=== PATIENT | male | born 1965 | race Caucasian/White ===

== ENCOUNTER 2020-11-25 10:23 | Inpatient (IN) | payer BC ==
[2020-11-25] MEDS ORDERED: ACETAMINOPHEN TAB 500 MG TAB PO STA (10:46)
--- NOTE | 2020-11-25 10:54 | ED ---
SOB HPI - General Chief Complaint: Shortness of Breath Stated Complaint: COVID +, SOB Time Seen by Provider: 11/25/20 10:32 Source: patient, EMS Mode of arrival: EMS - History of Present Illness Initial Comments: Patient is a 55-year-old male, with history of diabetes, hypertension, presenting to the emergency department via EMS with complaints of difficulty breathing. Patient states he tested positive for Covid on Saturday, 4 days ago. His symptoms started 2 days before that. He is on day 6 of symptoms. He states he's been having cough, weakness, some mild nausea, decreased appetite. He has not been able to eat or drink very much. He denies history of asthma or COPD, he is a nonsmoker. Patient states his shortness of breath has been getting worse over the past 2 days. He has been having intermittent fevers. No Tylenol or Motrin today. He denies any chest pains, no abdominal pains. He has no further complaints at this time. Per EMS, he was satting 86% on room air at home. Upon arrival to our ER, his temperatures 100.5, 94% on 2 L. - Related Data Home Medications Medication Instructions Recorded Confirmed Albuterol Inhaler [Ventolin Hfa 1 puff INHALATION RT-QID PRN 11/25/20 11/25/20 Inhaler] Atorvastatin [Lipitor] 20 mg PO HS 11/25/20 11/25/20 Benzonatate [Tessalon Perles] 100 mg PO TID PRN 11/25/20 11/25/20 HYDROcodone/APAP 7.5-325MG [[place] 1 tab PO Q4H PRN 11/25/20 11/25/20 7.5-325] Nortriptyline [Pamelor] 50 mg PO HS 11/25/20 11/25/20 lisinopriL [Zestril] 20 mg PO DAILY 11/25/20 11/25/20 metFORMIN HCL [Glucophage] 500 mg PO DAILY 11/25/20 11/25/20 Allergies Allergy/AdvReac Type Severity Reaction Status Date / Time No Known Allergies Allergy Verified 11/25/20 12:01 Review of Systems ROS Statement: Those systems with pertinent positive or pertinent negative responses have been documented in the HPI. ROS Other: All systems not noted in ROS Statement are negative. Past Medical History Past Medical History: Diabetes Mellitus, Hypertension History of Any Multi-Drug Resistant Organisms: None Reported Past Surgical History: Back Surgery Past Psychological History: No Psychological Hx Reported Smoking Status: Never smoker Past Alcohol Use History: None Reported Past Drug Use History: None Reported General Exam - General Exam Comments Initial Comments: GENERAL: Patient is well-developed and well-nourished. Patient is nontoxic, however has diaphoretic, appears very fatigued, and in no acute distress. HEAD: Atraumatic, normocephalic. EYES: Pupils equal round and reactive to light, extraocular movements intact, sclera anicteric, conjunctiva are normal. Eyelids were unremarkable. ENT: TMs normal, nares patent, oropharynx clear without exudates. Moist mucous membranes. NECK: Normal range of motion, supple without lymphadenopathy or JVD. LUNGS: Unlabored respirations. Diminished sounds in the lower quintero. No wheezes rales or rhonchi. HEART: Regular rate and rhythm without murmurs, rubs or gallops. ABDOMEN: Soft, nontender, normoactive bowel sounds. No guarding, no rebound. No masses appreciated. : Deferred MUSCULOSKELETAL: Normal extremities with adequate strength and normal range of motion, no pitting or edema. No clubbing or cyanosis. NEUROLOGICAL: Patient is alert and oriented x 3. Motor and sensory are also intact. Cranial nerves II through XII grossly intact. Symmetrical smile. Normal speech, normal gait. PSYCH: Normal mood, normal affect. SKIN: Warm, Dry, normal turgor, no rashes or lesions noted. Course Vital Signs 11/25/20 11/25/20 11/25/20 10:24 11:30 12:30 Temperature 100.5 F H Pulse Rate 98 100 86 Respiratory 18 26 H 22 Rate Blood Pressure 126/75 121/83 121/80 O2 Sat by Pulse 94 L 95 95 Oximetry 11/25/20 11/25/20 11/25/20 13:30 14:30 15:00 Temperature 98.3 F Pulse Rate 80 76 89 Respiratory 24 24 26 H Rate Blood Pressure 120/79 113/73 108/65 O2 Sat by Pulse 95 91 L 88 L Oximetry Medical Decision Making - Medical Decision Making Patient is a 55-year-old male with history of diabetes, hypertension, presenting via EMS for difficulty breathing. Positive Covid test on Saturday, symptoms began 6 days ago. It arrived febrile to 100.5, per EMS he was stating 86% on room air. He is currently on 2 L at 96%. Labs show a normal white count, slight elevation in d-dimer is 0.77, sodium is low at 128, liver enzymes, LDH and CRP are slightly up consistent with Covid. Lactic acid is 1.3. Chest x-ray shows multifocal bilateral patchy Covid pneumonia. He shouldn't has remained stable on 2 L at 95%. We did have a trial of room air, he quickly dropped to 8788%. Patient will remain on 2 L. Patient will be admitted for Covid pneumonia, hypoxia, hyponatremia. Patient accepted by Dr. Smith. Case discussed with Dr. Woodson. - Lab Data Result diagrams: 11/25/20 12:15 11/25/20 12:45 Lab Results 11/25/20 11/25/20 11/25/20 Range/Units 12:15 12:15 12:15 WBC 5.3 (3.8-10.6) k/uL RBC 4.86 (4.30-5.90) m/uL Hgb 15.8 (13.0-17.5) gm/dL Hct 42.8 (39.0-53.0) % MCV 88.0 (80.0-100.0) fL MCH 32.5 (25.0-35.0) pg MCHC 36.9 (31.0-37.0) g/dL RDW 11.2 L (11.5-15.5) % Plt Count 190 (150-450) k/uL MPV 7.0 Neutrophils % 87 % Lymphocytes % 9 % Monocytes % 1 % Eosinophils % 1 % Basophils % 0 % Neutrophils # 4.6 (1.3-7.7) k/uL Lymphocytes # 0.5 L (1.0-4.8) k/uL Monocytes # 0.1 (0-1.0) k/uL Eosinophils # 0.1 (0-0.7) k/uL Basophils # 0.0 (0-0.2) k/uL PT 10.8 (9.0-12.0) sec INR 1.0 (<1.2) APTT 24.0 (22.0-30.0) sec D-Dimer 0.77 H (<0.60) mg/L FEU Sodium (137-145) mmol/L Potassium (3.5-5.1) mmol/L Chloride (98-107) mmol/L Carbon Dioxide (22-30) mmol/L Anion Gap mmol/L BUN (9-20) mg/dL Creatinine (0.66-1.25) mg/dL Est GFR (CKD-EPI)AfAm (>60 ml/min/1.73 sqM) Est GFR (CKD-EPI)NonAf (>60 ml/min/1.73 sqM) Glucose (74-99) mg/dL Plasma Lactic Acid Goran 1.3 (0.7-2.0) mmol/L Calcium (8.4-10.2) mg/dL Magnesium (1.6-2.3) mg/dL Total Bilirubin (0.2-1.3) mg/dL AST (17-59) U/L ALT (4-49) U/L Alkaline Phosphatase (38-126) U/L Lactate Dehydrogenase (313-618) U/L C-Reactive Protein (<1.0) mg/dL Total Protein (6.3-8.2) g/dL Albumin (3.5-5.0) g/dL 11/25/20 Range/Units 12:45 WBC (3.8-10.6) k/uL RBC (4.30-5.90) m/uL Hgb (13.0-17.5) gm/dL Hct (39.0-53.0) % MCV (80.0-100.0) fL MCH (25.0-35.0) pg MCHC (31.0-37.0) g/dL RDW (11.5-15.5) % Plt Count (150-450) k/uL MPV Neutrophils % % Lymphocytes % % Monocytes % % Eosinophils % % Basophils % % Neutrophils # (1.3-7.7) k/uL Lymphocytes # (1.0-4.8) k/uL Monocytes # (0-1.0) k/uL Eosinophils # (0-0.7) k/uL Basophils # (0-0.2) k/uL PT (9.0-12.0) sec INR (<1.2) APTT (22.0-30.0) sec D-Dimer (<0.60) mg/L FEU Sodium 128 L (137-145) mmol/L Potassium 4.0 (3.5-5.1) mmol/L Chloride 95 L (98-107) mmol/L Carbon Dioxide 19 L (22-30) mmol/L Anion Gap 14 mmol/L BUN 17 (9-20) mg/dL Creatinine 0.76 (0.66-1.25) mg/dL Est GFR (CKD-EPI)AfAm >90 (>60 ml/min/1.73 sqM) Est GFR (CKD-EPI)NonAf >90 (>60 ml/min/1.73 sqM) Glucose 116 H (74-99) mg/dL Plasma Lactic Acid Goran (0.7-2.0) mmol/L Calcium 8.3 L (8.4-10.2) mg/dL Magnesium 2.0 (1.6-2.3) mg/dL Total Bilirubin 0.7 (0.2-1.3) mg/dL AST 123 H (17-59) U/L ALT 78 H (4-49) U/L Alkaline Phosphatase 70 (38-126) U/L Lactate Dehydrogenase 1994 H (313-618) U/L C-Reactive Protein 7.7 H (<1.0) mg/dL Total Protein 6.4 (6.3-8.2) g/dL Albumin 3.7 (3.5-5.0) g/dL - EKG Data EKG Comments: Normal sinus rhythm, normal ECG, no signs of acute ischemia. Ventricular rate 98, AR interval 164, QT 348. Disposition Clinical Impression: Pneumonia due to COVID-19 virus, Hypoxia, Hyponatremia Disposition: ADMITTED IP TO THIS HOSP Condition: Stable Referrals: Dominguez Stratton MD [Primary Care Provider] - 1-2 days Decision Date: 11/25/20 Decision Time: 15:46
[2020-11-25] MEDS: DEXAMETHASONE SOD PHOSPHATE 10 MG/ML 1 ML VIAL IV SCH (11:40)
--- NOTE | 2020-11-25 11:57 | XR ---
EXAMINATION TYPE: XR chest 1V portable DATE OF EXAM: 11/25/2020 Comparison: None Clinical History: 55-year-old male shortness of breath, Suspected COVID-19 pneumonia Findings: ACDF hardware. Heart normal size. Aorta and pulmonary vasculature are within normal dates. Patchy mul tifocal airspace opacities. No pleural effusion. Impression: Multifocal bilateral patchy COVID pneumonia.
[2020-11-25] MEDS ORDERED: SODIUM CHLORIDE 0.9% 1,000 ML IV STA (12:07)
[2020-11-25 12:52] LABS: Basophils % (A) 0 %; Eosinophils # (A) 0.1 k/uL (0-0.7); Eosinophils % (A) 1 %; HCT 42.8 % (39.0-53.0); HGB 15.8 gm/dL (13.0-17.5); Lymphocytes # (A) 0.5 k/uL (1.0-4.8); Lymphocytes % (A) 9 %; MCH 32.5 pg (25.0-35.0); MCHC 36.9 g/dL (31.0-37.0); Monocytes # (A) 0.1 k/uL (0-1.0); Monocytes % (A) 1 %; Neutrophils # (A) 4.6 k/uL (1.3-7.7); Neutrophils % (A) 87 %; Platelet Count 190 k/uL (150-450); RBC 4.86 m/uL (4.30-5.90); RDW 11.2 % (11.5-15.5); WBC 5.3 k/uL (3.8-10.6)
[2020-11-25 12:58] LABS: Prothrombin Time 10.8 sec (9.0-12.0)
[2020-11-25 13:21] LABS: D-Dimer 0.77 mg/L FEU (<0.60)
[2020-11-25 14:17] LABS: ALT 78 U/L (4-49); AST 123 U/L (17-59); African American GFR (CKD) >90 (>60 ml/min/1.73 sqM); Albumin 3.7 g/dL (3.5-5.0); Alkaline Phosphatase 70 U/L (38-126); Anion Gap 14 mmol/L; Blood Urea Nitrogen 17 mg/dL (9-20); C Reactive Protein 7.7 mg/dL (<1.0); Calcium 8.3 mg/dL (8.4-10.2); Carbon Dioxide 19 mmol/L (22-30); Chloride 95 mmol/L (98-107); Glucose 116 mg/dL (74-99); Non-African American GFR(CKD) >90 (>60 ml/min/1.73 sqM); Sodium 128 mmol/L (137-145); Total Bilirubin 0.7 mg/dL (0.2-1.3); Total Protein 6.4 g/dL (6.3-8.2)
[2020-11-25 14:25] LABS: LDH 1994 U/L (313-618)
[2020-11-25] MEDS ORDERED: NALOXONE 0.4 MG/ML 1 ML VIAL IV PRN (15:47)
[2020-11-25] MEDS ORDERED: IBUPROFEN 400 MG TAB PO PRN (15:47)
[2020-11-25] MEDS ORDERED: ACETAMINOPHEN TAB 325 MG TAB PO PRN (15:47)
[2020-11-25] MEDS: SODIUM CHLORIDE 0.9% 1,000 ML IV SCH (16:39)
[2020-11-25] MEDS ORDERED: REMDESIVIR 200 MG in SODIUM CHLORIDE 0.9% 250 ML IVPB ONE (17:30)
--- NOTE | 2020-11-25 18:08 | P.CNPUL ---
History of Present Illness Consult date: 11/25/20 Reason for consult: dyspnea, hypoxemia, pneumonia History of present illness: 55-year-old male patient having symptoms of COVID-19 for the past 6 days. He tested positive for days ago on 11/21/2020. His coming into the emergency because of worsening shortness of breath. He is also having cough, weakness, nausea and diminished appetite. He has been eating and drinking much. Comorbid conditions include diabetes mellitus and hypertension. His temperature 90 emergency with 100.5 and he was hemodynamically stable. He was hypoxic and was placed on oxygen 2 L per minute nasal cannula to bring his saturation at 95%. D-dimer was 0.77. His blood work also showed a sodium level of 128, chloride of 95, glucose of 116, lactic acid of 1.3, LFTs are showing mild elevation consistent with transaminitis, LDH was 1994 with CRP was 7.7 and the creatinine is at 0.7 with a BUN of 17. The patient's EKG was showing normal sinus rhythm. The chest x-rays showing bilateral multifocal patchy pulmonary infiltrates/pneumonia. Review of Systems Constitutional: Reports as per HPI, Reports fatigue, Reports fever, Reports poor appetite, Reports weakness Eyes: denies as per HPI, denies blurred vision, denies bulging eye, denies decreased vision, denies diplopia, denies discharge, denies dry eye, denies irritation, denies itching, denies pain, denies photophobia, denies loss of per ipheral vision, denies loss of vision, denies tunnel vision/blind spots Ears: deny: decreased hearing, ear discharge, earache, tinnitus Ears, nose, mouth and throat: Reports as per HPI Breasts: absent: as per HPI, gynecomastia Cardiovascular: Reports decreased exercise tolerance, Reports dyspnea on exertion Respiratory: Reports cough, Reports dyspnea Genitourinary: Reports as per HPI Musculoskeletal: Reports as per HPI, Reports muscle weakness Musculoskeletal: absent: ankle pain, ankle stiffness, ankle swelling, as per HPI, elbow pain, elbow stiffness, elbow swelling, foot pain, foot stiffness, foot swelling, hand pain, hand stiffness, hand swelling, hip pain, hip stiffness, hip swelling, knee pain, knee stiffness, knee swelling, shoulder pain, shoulder stiffness, shoulder swelling, wrist pain, wrist stiffness, wrist swelling Integumentary: Reports as per HPI Neurological: Reports as per HPI, Reports weakness Psychiatric: Reports as per HPI Endocrine: Reports as per HPI Hematologic/Lymphatic: Reports as per HPI Allergic/Immunologic: Reports as per HPI Past Medical History Past Medical History: Diabetes Mellitus, Hypertension History of Any Multi-Drug Resistant Organisms: None Reported Past Surgical History: Back Surgery Additional Past Surgical History / Comment(s): cervical spine surgery-fixation Past Psychological History: No Psychological Hx Reported Smoking Status: Never smoker Past Alcohol Use History: None Reported Past Drug Use History: None Reported Medications and Allergies Home Medications Medication Instructions Recorded Confirmed Type Albuterol Inhaler [Ventolin Hfa 1 puff INHALATION RT-QID PRN 11/25/20 11/25/20 History Inhaler] Atorvastatin [Lipitor] 20 mg PO HS 11/25/20 11/25/20 History Benzonatate [Tessalon Perles] 100 mg PO TID PRN 11/25/20 11/25/20 History HYDROcodone/APAP 7.5-325MG [[place] 1 tab PO Q4H PRN 11/25/20 11/25/20 History 7.5-325] Nortriptyline [Pamelor] 50 mg PO HS 11/25/20 11/25/20 History lisinopriL [Zestril] 20 mg PO DAILY 11/25/20 11/25/20 History metFORMIN HCL [Glucophage] 500 mg PO DAILY 11/25/20 11/25/20 History Allergies Allergy/AdvReac Type Severity Reaction Status Date / Time No Known Allergies Allergy Verified 11/25/20 12:01 Physical Exam Vitals: Vital Signs Temp Pulse Resp BP Pulse Ox 11/25/20 15:30 70 25 H 102/78 94 L 11/25/20 15:00 89 26 H 108/65 88 L 11/25/20 14:30 76 24 113/73 91 L 11/25/20 13:30 98.3 F 80 24 120/79 95 11/25/20 12:30 86 22 121/80 95 11/25/20 11:30 100 26 H 121/83 95 11/25/20 10:24 100.5 F H 98 18 126/75 94 L Intake and Output 11/25/20 11/25/20 11/25/20 06:59 14:59 22:59 Other: Weight 90.718 kg Gen. appearance, comfortable, slightly diaphoretic and looks fatigued. Not in acute breathing distress mild looks to be quite Lethargic and weak currently on 2 L of oxygen by nasal cannula. Head exam was generally normal. There was no scleral icterus or corneal arcus. Mucous membranes were moist. Neck was supple and without jugular venous distension, thyromegaly, or carotid bruits. Carotids were easily palpable bilaterally. There was no adenopathy. Lungs are diminished and the patient has crackles in lung bases. Breathing is unlabored. Cardiac exam revealed the PMI to be normally situated and sized. The rhythm was regular and no extrasystoles were noted during several minutes of auscultation. The first and second heart sounds were normal and physiologic splitting of the second heart sound was noted. There were no murmurs, rubs, clicks, or gallops. Abdominal exam revealed normal bowel sounds. The abdomen was soft, non-tender, and without masses, organomegaly, or appreciable enlargement of the abdominal aorta. Examination of the extremities revealed easily palpable radial, femoral and pedal pulses. There was no cyanosis, clubbing or edema. Examination of the skin revealed no evidence of significant rashes, suspicious appearing nevi or other concerning lesions. Neurologically, the patient is awake and alert and the patient does not have any focal neurological deficit. Cranial nerves are essentially intact.Generalized global motor weakness. Results - Laboratory Findings CBC and BMP: 11/25/20 12:15 11/25/20 12:45 PT/INR, D-dimer PT 10.8 sec (9.0-12.0) 11/25/20 12:15 INR 1.0 (<1.2) 11/25/20 12:15 D-Dimer 0.77 mg/L FEU (<0.60) H 11/25/20 12:15 Abnormal lab findings: Abnormal Labs 11/25/20 11/25/20 11/25/20 12:15 12:15 12:45 RDW 11.2 L Lymphocytes # 0.5 L D-Dimer 0.77 H Sodium 128 L Chloride 95 L Carbon Dioxide 19 L Glucose 116 H Calcium 8.3 L AST 123 H ALT 78 H Lactate Dehydrogenase 1994 H C-Reactive Protein 7.7 H - Diagnostic Findings Chest x-ray: image reviewed Assessment and Plan Plan: 1 acute COVID-19 related pneumonia. Symptoms started approximately 9 days ago. The patient presented with shortness of breath and constitutional symptoms addition to some limited pneumonia and lung bases bilaterally. The patient is not confused however he has significant weakness. Consider the possibility of COVID-19 encephalopathy. 2 acute hypoxic respiratory failure currently on 2 L about 2 by nasal cannula. Chest x-ray was reviewed 3 diabetes mellitus maintained on metformin 4 hypertension 5 Hypochloremic hyponatremia most likely secondary to intravascular volume depletion 6 mild transaminitis secondary to COVID-19 related infection 7 hyperlipidemia 8 lymphopenia secondary to above 9 generalized muscle weakness and overall weakness secondary to COVID-19 related infection. Plan IV fluids with normal saline at the rate of 75 mL an hour Monitor sodium level Oxygen supplementation 2 L and titrate the flow to maintain saturation above 90% Decadron 6 mg IV every 24 hours Lovenox 40 mg subcu every 24 hours Check inflammatory markers including LDH and CRP were elevated. d-dimer is mildly elevated check CPK monitor LFTs Remdesivir and convalescent plasma will be offered to this patient We'll continue to follow. Resume home medications. Monitor oxygenation.
[2020-11-25 18:37] LABS: Glucose,Whole Blood 136 mg/dL (75-99)
[2020-11-25] MEDS: INSULIN ASPART (NovoLOG) 100 UNIT/ML VIAL SQ SCH ×2 (18:38→22:30)
[2020-11-25] MEDS ORDERED: HYDROcodone/APAP 7.5-325MG 1 EACH TAB PO PRN (21:21)
[2020-11-25 22:01] LABS: Glucose,Whole Blood 156 mg/dL (75-99)
[2020-11-25] MEDS: ATORVASTATIN 20 MG TAB PO SCH (22:29)
[2020-11-25] MEDS: NORTRIPTYLINE 25 MG CAP PO SCH (22:29)
[2020-11-25] MEDS: ONDANSETRON 4 MG/2 ML VIAL IVP PRN (22:32)
[2020-11-26 01:04] LABS: Ferritin 2236.4 ng/mL (22.0-322.0)
[2020-11-26] MEDS: SODIUM CHLORIDE 0.9% 1,000 ML IV SCH ×3 (05:46→16:13)
[2020-11-26 07:20] LABS: Glucose,Whole Blood 120 mg/dL (75-99)
--- NOTE | 2020-11-26 07:22 | XR ---
EXAMINATION TYPE: XR chest 1V portable DATE OF EXAM: 11/26/2020 CLINICAL HISTORY: Difficulty breathing and covid progress study. TECHNIQUE: Single AP portable semiupright view of the chest is obtained. COMPARISON: Chest x-ray from one day earlier FINDINGS: Surgical changes cervical spine partially imaged. Cardiac silhouette size stable and withi n normal limits. Persistent low lung volumes with multifocal increased opacities. No pleural effusion or pneumothorax seen bilaterally. IMPRESSION: Low lung volumes and bilateral multifocal opacities consistent with covid-19 infection re demonstrated. No significant change from one day earlier.
[2020-11-26] MEDS: INSULIN ASPART (NovoLOG) 100 UNIT/ML VIAL SQ SCH ×4 (07:57→21:05)
[2020-11-26 08:12] LABS: ALT 68 U/L (4-49); AST 85 U/L (17-59); African American GFR (CKD) >90 (>60 ml/min/1.73 sqM); Albumin 3.1 g/dL (3.5-5.0); Albumin/Globulin Ratio 1.2; Alkaline Phosphatase 60 U/L (38-126); Anion Gap 7 mmol/L; Blood Urea Nitrogen 17 mg/dL (9-20); C Reactive Protein 7.1 mg/dL (<1.0); Carbon Dioxide 25 mmol/L (22-30); Chloride 101 mmol/L (98-107); Globulin 2.5 g/dL; Glucose 127 mg/dL (74-99); LDH 1722 U/L (313-618); Non-African American GFR(CKD) >90 (>60 ml/min/1.73 sqM); Potassium 4.5 mmol/L (3.5-5.1); Sodium 133 mmol/L (137-145); Total Bilirubin 0.6 mg/dL (0.2-1.3); Total Protein 5.6 g/dL (6.3-8.2)
[2020-11-26] MEDS: lisinopriL 20 MG TAB PO SCH (08:14)
[2020-11-26] MEDS: DEXAMETHASONE SOD PHOSPHATE 10 MG/ML 1 ML VIAL IV SCH (08:15)
--- NOTE | 2020-11-26 10:03 | P.PN ---
Subjective Progress Note Date: 11/26/20 55-year-old male patient having symptoms of COVID-19 for the past 6 days. He tested positive for days ago on 11/21/2020. His coming into the emergency because of worsening shortness of breath. He is also having cough, weakness, nausea and diminished appetite. He has been eating and drinking much. Comorbid conditions include diabetes mellitus and hypertension. His temperature 90 emergency with 100.5 and he was hemodynamically stable. He was hypoxic and was placed on oxygen 2 L per minute nasal cannula to bring his saturation at 95%. D-dimer was 0.77. His blood work also showed a sodium level of 128, chloride of 95, glucose of 116, lactic acid of 1.3, LFTs are showing mild elevation consis tent with transaminitis, LDH was 1994 with CRP was 7.7 and the creatinine is at 0.7 with a BUN of 17. The patient's EKG was showing normal sinus rhythm. The chest x-rays showing bilateral multifocal patchy pulmonary infiltrates/pneumonia. 11/26/2020, the patient remains lethargic although somewhat improved compared to yesterday. He remains quite weak. He is on 4 l by nasal cannula the pulse ox of 95%. No worsening in his oxygenation. He is afebrile. He is hemodynamically stable. His IV fluids and the current IV is normal saline at the rate of 75 mL an hour. His sodium level is up to 133 with a chloride level of 11. Renal function stable. The LDH level is down to 1722 and a CRP level is down to 5.6. He is d-dimer today is at 0.7. The patient was given Decadron. The patient was also given Rem and currently is day #2 of treatment. He is awaiting still on his convalescent plasma. Objective - Vital Signs Vital signs: Vital Signs Temp 98.4 F 11/26/20 09:54 Pulse 90 11/26/20 09:54 Resp 20 11/26/20 09:54 BP 109/69 11/26/20 09:54 Pulse Ox 95 11/26/20 09:54 Intake & Output 11/25/20 11/26/20 11/26/20 18:59 06:59 18:59 Weight 90.718 kg - Exam Gen. appearance, comfortable, slightly diaphoretic and looks fatigued. Not in acute breathing distress mild looks to be quite Lethargic and weak currently on 4 L of oxygen by nasal cannula. Head exam was generally normal. There was no scleral icterus or corneal arcus. Mucous membranes were moist. Neck was supple and without jugular venous distension, thyromegaly, or carotid bruits. Carotids were easily palpable bilaterally. There was no adenopathy. Lungs are diminished and the patient has crackles in lung bases. Breathing is unlabored. Cardiac exam revealed the PMI to be normally situated and sized. The rhythm was regular and no extrasystoles were noted during several minutes of auscultation. The first and second heart sounds were normal and physiologic splitting of the second heart sound was noted. There were no murmurs, rubs, clicks, or gallops. Abdominal exam revealed normal bowel sounds. The abdomen was soft, non-tender, and without masses, organomegaly, or appreciable enlargement of the abdominal aorta. Examination of the extremities revealed easily palpable radial, femoral and pedal pulses. There was no cyanosis, clubbing or edema. Examination of the skin revealed no evidence of significant rashes, suspicious appearing nevi or other concerning lesions. Neurologically, the patient is awake and alert and the patient does not have any focal neurological deficit. Cranial nerves are essentially intact.Generalized global motor weakness. - Labs CBC & Chem 7: 11/25/20 12:15 11/26/20 07:07 Labs: Abnormal Lab Results - Last 24 Hours (Table) 11/25/20 11/25/20 11/25/20 Range/Units 12:15 12:15 12:15 RDW 11.2 L (11.5-15.5) % Lymphocytes # 0.5 L (1.0-4.8) k/uL D-Dimer 0.77 H (<0.60) mg/L FEU Sodium (137-145) mmol/L Chloride (98-107) mmol/L Carbon Dioxide (22-30) mmol/L Glucose (74-99) mg/dL POC Glucose (mg/dL) (75-99) mg/dL Calcium (8.4-10.2) mg/dL Ferritin (22.0-322.0) ng/mL AST (17-59) U/L ALT (4-49) U/L Lactate Dehydrogenase (313-618) U/L Creatine Kinase 182 H (55-170) U/L C-Reactive Protein (<1.0) mg/dL Total Protein (6.3-8.2) g/dL Albumin (3.5-5.0) g/dL 11/25/20 11/25/20 11/25/20 Range/Units 12:45 18:35 21:59 RDW (11.5-15.5) % Lymphocytes # (1.0-4.8) k/uL D-Dimer (<0.60) mg/L FEU Sodium 128 L (137-145) mmol/L Chloride 95 L (98-107) mmol/L Carbon Dioxide 19 L (22-30) mmol/L Glucose 116 H (74-99) mg/dL POC Glucose (mg/dL) 136 H 156 H (75-99) mg/dL Calcium 8.3 L (8.4-10.2) mg/dL Ferritin 2236.4 H (22.0-322.0) ng/mL AST 123 H (17-59) U/L ALT 78 H (4-49) U/L Lactate Dehydrogenase 1994 H (313-618) U/L Creatine Kinase (55-170) U/L C-Reactive Protein 7.7 H (<1.0) mg/dL Total Protein (6.3-8.2) g/dL Albumin (3.5-5.0) g/dL 11/26/20 11/26/20 11/26/20 Range/Units 07:07 07:07 07:18 RDW (11.5-15.5) % Lymphocytes # (1.0-4.8) k/uL D-Dimer 0.70 H (<0.60) mg/L FEU Sodium 133 L (137-145) mmol/L Chloride (98-107) mmol/L Carbon Dioxide (22-30) mmol/L Glucose 127 H (74-99) mg/dL POC Glucose (mg/dL) 120 H (75-99) mg/dL Calcium 8.0 L (8.4-10.2) mg/dL Ferritin (22.0-322.0) ng/mL AST 85 H (17-59) U/L ALT 68 H (4-49) U/L Lactate Dehydrogenase 1722 H (313-618) U/L Creatine Kinase (55-170) U/L C-Reactive Protein 7.1 H (<1.0) mg/dL Total Protein 5.6 L (6.3-8.2) g/dL Albumin 3.1 L (3.5-5.0) g/dL Assessment and Plan Plan: 1 acute COVID-19 related pneumonia. Symptoms started approximately 9 days ago. The patient presented with shortness of breath and constitutional symptoms addition to some limited pneumonia and lung bases bilaterally. The patient is not confused however he has significant weakness. Consider the possibility of COVID-19 encephalopathy.. Clinically, he is feeling slightly better. He is currently off to 4 L of oxygen by nasal cannula. Electrolytes are also improving with fluids. She is receiving a combination of Decadron and Remdesivi r 2 acute hypoxic respiratory failure currently on 4 L by nasal cannula. Chest x-ray was reviewed 3 diabetes mellitus maintained on metformin 4 hypertension 5 Hypochloremic hyponatremia most likely secondary to intravascular volume depletion 6 mild transaminitis secondary to COVID-19 related infection 7 hyperlipidemia 8 lymphopenia secondary to above 9 generalized muscle weakness and overall weakness secondary to COVID-19 related infection. Plan IV fluids with normal saline at the rate of 75 mL an hour Monitor sodium level Oxygen supplementation 4 L and titrate the flow to maintain saturation above 90% Decadron 6 mg IV every 24 hours Lovenox 40 mg subcu every 24 hours Check inflammatory markers including LDH and CRP were elevated. d-dimer is mildly elevated check CPK monitor LFTs Remdesivir day #2 Awaiting on convalescent plasma We'll continue to follow. Resume home medications. Monitor oxygenation.
[2020-11-26] MEDS: ALBUTEROL HFA INHALER INHALATION PRN ×2 (11:52→15:40)
[2020-11-26 12:06] LABS: Glucose,Whole Blood 153 mg/dL (75-99)
[2020-11-26] MEDS: ZINC SULFATE 220 MG CAP PO SCH (17:43)
[2020-11-26] MEDS: CHOLECALCIFEROL 25 MCG (1000 IU) TABLET PO SCH (17:43)
[2020-11-26] MEDS: ASCORBIC ACID 500 MG TAB PO SCH (17:43)
[2020-11-26] MEDS: REMDESIVIR 100 MG in SODIUM CHLORIDE 0.9% 250 ML IVPB SCH (19:17)
--- NOTE | 2020-11-26 19:21 | P.HPIM ---
History of Present Illness H&P Date: 11/26/20 Chief Complaint: Short of breath History of presenting complaint: This is a pleasant 55-year-old patient of Dr. Stratton. Chronic stable medical conditions include diabetes, hypertension, chronic insomnia hyperlipidemia. Patient 40s of on Saturday or diagnosed with COVID 19. Symptoms started 2 days prior to that. Short of breath cough fever chills headaches bodyaches some di arrhea. No loss of smell or taste. Patient initial pulse ox on room air was 94% and then a few hours patient did drop down to 88%. Review of systems: GEN.: Fever and chills tired EYES: None HEENT: None NECK: None RESPIRATORY: As above CARDIOVASCULAR: None GASTROINTESTINAL: None GENITOURINARY: None MUSCULOSKELETAL: Bodyaches LYMPHATICS: None HEMATOLOGICAL: None PSYCHIATRY: None NEUROLOGICAL: None Past medical history to include: Diabetes, hypertension, insomnia, hyperlipidemia, back surgery Social history: . Does not smoke or drink alcohol. Employed Physical examination: VITAL SIGNS: 100.5, 98, 18, 09/06/1974, 94% on room air, then 88% on room air GENERAL: BMI 28.7, reclining in bed, short of breath tired. EYES: Pupils equal. Conjunctiva normal. HEENT: External appearance of nose and ears normal, oral cavity grossly normal. NECK: JVD not raised; masses not palpable. HEART: First and second heart sounds are normal; no edema. LUNGS:[ Respiratory rate increased, decreased breath sounds bilateral crackles. ABDOMEN: Soft, nontender, liver spleen not palpable, no masses palpable. PSYCH: Alert and oriented x3; mood and affect slightly anxiousl. NEUROLOGICAL: Cranial nerves grossly intact; no facial asymmetry, power and sensation grossly intact. LYMPHATICS: No lymph nodes palpable in the axilla and neck INVESTIGATIONS, reviewed in the clinical context: November 26: D-dimer 0.7 potassium 4.5 creatinine 0.77 CRP 7.1 LDH 1722 Admission labs: WBC 5.3 hemoglobin 15.8 lymphocytes 0.5 d-dimer 0.77 sodium 128 potassium 4 creatinine 0.76 AST 123 ALT 78 LDH 1993 CRP 7.7 EKG tracing personally reviewed by me-normal sinus rhythm Chest x-ray film personally reviewed by me-bilateral infiltrates Assessment and plan: -Bilateral COVID 19 pneumonia symptoms starting 6 days ago and patient been diagnosed with COVID 4 days ago. Patient is currently receiving vitamin C vitamin D IV Decadron Pepcid subcu Lovenox. Started on IV Remdesivir. Pulmonary consulted -Acute hypoxic respiratory failure from COVID 19 Patient had dropped down to 88% on room air, not requiring 4 L nasal cannula -Diabetes mellitus type 2 Follow Accu-Cheks. Resume Glucophage -Essential hypertension Continue with Zestril -Hyperlipidemia Continue with Lipitor -Chronic insomnia, idiopathic Continue with Pamelor -Hyponatremia likely from decreased solute intake IV fluids Care was discussed with the patient. Questions answered. Encouraged to set up on a chair and use incentive spirometry. Given the complexity and severity of patient's condition expect the patient to be in the hospital at least for 2 overnights Past Medical History Past Medical History: Diabetes Mellitus, Hypertension History of Any Multi-Drug Resistant Organisms: None Reported Past Surgical History: Back Surgery Additional Past Surgical History / Comment(s): cervical spine surgery-fixation Past Psychological History: No Psychological Hx Reported Smoking Status: Never smoker Past Alcohol Use History: None Reported Past Drug Use History: None Reported - Past Family History Father Family Medical History: Dementia Mother Family Medical History: Unable to Obtain Medications and Allergies Home Medications Medication Instructions Recorded Confirmed Type Albuterol Inhaler [Ventolin Hfa 1 puff INHALATION RT-QID PRN 11/25/20 11/25/20 History Inhaler] Atorvastatin [Lipitor] 20 mg PO HS 11/25/20 11/25/20 History Benzonatate [Tessalon Perles] 100 mg PO TID PRN 11/25/20 11/25/20 History HYDROcodone/APAP 7.5-325MG [[place] 1 tab PO Q4H PRN 11/25/20 11/25/20 History 7.5-325] Nortriptyline [Pamelor] 50 mg PO HS 11/25/20 11/25/20 History lisinopriL [Zestril] 20 mg PO DAILY 11/25/20 11/25/20 History metFORMIN HCL [Glucophage] 500 mg PO DAILY 11/25/20 11/25/20 History Allergies Allergy/AdvReac Type Severity Reaction Status Date / Time No Known Allergies Allergy Verified 11/25/20 12:01 Physical Exam Vitals: Vital Signs Temp Pulse Resp BP Pulse Ox 11/26/20 09:54 98.4 F 90 20 109/69 95 04/17/21 08:13 85 18 115/77 94 L 11/26/20 06:50 87 18 115/72 97 11/26/20 03:36 97.9 F 84 18 128/70 92 L 11/26/20 00:05 80 24 111/75 99 11/25/20 22:00 98.1 F 84 24 133/86 97 11/25/20 21:00 99.0 F 98 30 H 122/65 92 L 11/25/20 20:00 81 26 H 131/75 95 11/25/20 19:00 75 26 H 125/91 95 11/25/20 18:00 98.2 F 75 24 121/86 95 11/25/20 17:00 79 18 139/78 94 L 11/25/20 16:38 71 18 115/89 97 11/25/20 15:30 70 25 H 102/78 94 L 11/25/20 15:00 89 26 H 108/65 88 L 11/25/20 14:30 76 24 113/73 91 L 11/25/20 13:30 98.3 F 80 24 120/79 95 11/25/20 12:30 86 22 121/80 95 11/25/20 11:30 100 26 H 121/83 95 11/25/20 10:24 100.5 F H 98 18 126/75 94 L Results CBC & Chem 7: 11/25/20 12:15 11/26/20 07:07 Labs: Abnormal Lab Results - Last 24 Hours (Table) 11/25/20 11/25/20 11/25/20 Range/Units 12:15 12:15 12:15 RDW 11.2 L (11.5-15.5) % Lymphocytes # 0.5 L (1.0-4.8) k/uL D-Dimer 0.77 H (<0.60) mg/L FEU Sodium (137-145) mmol/L Chloride (98-107) mmol/L Carbon Dioxide (22-30) mmol/L Glucose (74-99) mg/dL POC Glucose (mg/dL) (75-99) mg/dL Calcium (8.4-10.2) mg/dL Ferritin (22.0-322.0) ng/mL AST (17-59) U/L ALT (4-49) U/L Lactate Dehydrogenase (313-618) U/L Creatine Kinase 182 H (55-170) U/L C-Reactive Protein (<1.0) mg/dL Total Protein (6.3-8.2) g/dL Albumin (3.5-5.0) g/dL 11/25/20 11/25/20 11/25/20 Range/Units 12:45 18:35 21:59 RDW (11.5-15.5) % Lymphocytes # (1.0-4.8) k/uL D-Dimer (<0.60) mg/L FEU Sodium 128 L (137-145) mmol/L Chloride 95 L (98-107) mmol/L Carbon Dioxide 19 L (22-30) mmol/L Glucose 116 H (74-99) mg/dL POC Glucose (mg/dL) 136 H 156 H (75-99) mg/dL Calcium 8.3 L (8.4-10.2) mg/dL Ferritin 2236.4 H (22.0-322.0) ng/mL AST 123 H (17-59) U/L ALT 78 H (4-49) U/L Lactate Dehydrogenase 1994 H (313-618) U/L Creatine Kinase (55-170) U/L C-Reactive Protein 7.7 H (<1.0) mg/dL Total Protein (6.3-8.2) g/dL Albumin (3.5-5.0) g/dL 11/26/20 11/26/20 11/26/20 Range/Units 07:07 07:07 07:18 RDW (11.5-15.5) % Lymphocytes # (1.0-4.8) k/uL D-Dimer 0.70 H (<0.60) mg/L FEU Sodium 133 L (137-145) mmol/L Chloride (98-107) mmol/L Carbon Dioxide (22-30) mmol/L Glucose 127 H (74-99) mg/dL POC Glucose (mg/dL) 120 H (75-99) mg/dL Calcium 8.0 L (8.4-10.2) mg/dL Ferritin (22.0-322.0) ng/mL AST 85 H (17-59) U/L ALT 68 H (4-49) U/L Lactate Dehydrogenase 1722 H (313-618) U/L Creatine Kinase (55-170) U/L C-Reactive Protein 7.1 H (<1.0) mg/dL Total Protein 5.6 L (6.3-8.2) g/dL Albumin 3.1 L (3.5-5.0) g/dL
[2020-11-26] MEDS: ONDANSETRON 4 MG/2 ML VIAL IVP PRN (19:33)
[2020-11-26] MEDS: ENOXAPARIN 40 MG/0.4 ML SYRINGE SQ SCH (20:54)
[2020-11-26] MEDS: FAMOTIDINE 20 MG TAB PO SCH (20:55)
[2020-11-26] MEDS: NORTRIPTYLINE 25 MG CAP PO SCH (20:55)
[2020-11-26] MEDS: ATORVASTATIN 20 MG TAB PO SCH (20:55)
[2020-11-26 21:07] LABS: Glucose,Whole Blood 199 mg/dL (75-99)
[2020-11-27] MEDS: SODIUM CHLORIDE 0.9% 1,000 ML IV SCH ×4 (00:35→16:41)
[2020-11-27] MEDS: ALBUTEROL HFA INHALER INHALATION PRN ×4 (07:41→19:42)
[2020-11-27 07:57] LABS: Glucose,Whole Blood 140 mg/dL (75-99)
[2020-11-27] MEDS: INSULIN ASPART (NovoLOG) 100 UNIT/ML VIAL SQ SCH ×4 (08:20→21:25)
[2020-11-27] MEDS: lisinopriL 20 MG TAB PO SCH (08:31)
[2020-11-27] MEDS: FAMOTIDINE 20 MG TAB PO SCH ×2 (08:31→21:26)
[2020-11-27] MEDS: ASCORBIC ACID 500 MG TAB PO SCH (08:31)
[2020-11-27] MEDS: CHOLECALCIFEROL 25 MCG (1000 IU) TABLET PO SCH (08:31)
[2020-11-27] MEDS: ZINC SULFATE 220 MG CAP PO SCH (08:31)
[2020-11-27] MEDS: DEXAMETHASONE SOD PHOSPHATE 10 MG/ML 1 ML VIAL IV SCH (08:32)
[2020-11-27] MEDS: ENOXAPARIN 40 MG/0.4 ML SYRINGE SQ SCH (08:32)
[2020-11-27] MEDS ORDERED: metFORMIN 500 MG TAB PO SCH (09:00)
[2020-11-27 09:29] LABS: African American GFR (CKD) >90 (>60 ml/min/1.73 sqM); Anion Gap 7 mmol/L; Blood Urea Nitrogen 19 mg/dL (9-20); C Reactive Protein 4.8 mg/dL (<1.0); Calcium 7.9 mg/dL (8.4-10.2); Carbon Dioxide 25 mmol/L (22-30); Chloride 103 mmol/L (98-107); Glucose 124 mg/dL (74-99); LDH 1867 U/L (313-618); Non-African American GFR(CKD) >90 (>60 ml/min/1.73 sqM); Potassium 3.9 mmol/L (3.5-5.1); Sodium 135 mmol/L (137-145)
--- NOTE | 2020-11-27 09:56 | P.PN ---
Subjective Progress Note Date: 11/27/20 55-year-old male patient having symptoms of COVID-19 for the past 6 days. He tested positive for days ago on 11/21/2020. His coming into the emergency because of worsening shortness of breath. He is also having cough, weakness, nausea and diminished appetite. He has been eating and drinking much. Comorbid conditions include diabetes mellitus and hypertension. His temperature 90 emergency with 100.5 and he was hemodynamically stable. He was hypoxic and was placed on oxygen 2 L per minute nasal cannula to bring his saturation at 95%. D-dimer was 0.77. His blood work also showed a sodium level of 128, chloride of 95, glucose of 116, lactic acid of 1.3, LFTs are showing mild elevation consis tent with transaminitis, LDH was 1994 with CRP was 7.7 and the creatinine is at 0.7 with a BUN of 17. The patient's EKG was showing normal sinus rhythm. The chest x-rays showing bilateral multifocal patchy pulmonary infiltrates/pneumonia. 11/26/2020, the patient remains lethargic although somewhat improved compared to yesterday. He remains quite weak. He is on 4 l by nasal cannula the pulse ox of 95%. No worsening in his oxygenation. He is afebrile. He is hemodynamically stable. His IV fluids and the current IV is normal saline at the rate of 75 mL an hour. His sodium level is up to 133 with a chloride level of 11. Renal function stable. The LDH level is down to 1722 and a CRP level is down to 5.6. He is d-dimer today is at 0.7. The patient was given Decadron. The patient was also given Rem and currently is day #2 of treatment. He is awaiting still on his convalescent plasma. Or 2020 the patient is being seen for a follow-up. He remains on oxygen at 5 L with a pulse of 91%. He is afebrile. He is on IV fluids and his electrolytes have been stable and his sodium level is up to 135 and his underlying hyponatremia has been corrected. He was, inflammatory markers regarding COVID- 19 related pneumonia has been elevated and the patient has an LDH of 1868 with a CRP of 4.8. D-dimer is at 1.0. He remains on Decadron. He is on day #3 of breath treatment. He also received a unit of convalescent plasma which she got yesterday. Still sleepy, lethargic, feels weak and his energy level remains quite low. He has a dry cough. Not using his IS aggressively. He did not have his entire meal and his oral intake still remains low. No nausea. No vomiting. He is still having diarrhea and chills. He remains on IV fluids with normal saline at the rate of 75 mL an hour. Objective - Vital Signs Vital signs: Vital Signs Temp 97.7 F 11/27/20 08:00 Pulse 76 11/27/20 08:00 Resp 18 11/27/20 08:00 BP 108/69 11/27/20 08:00 Pulse Ox 91 L 11/27/20 08:00 Intake & Output 11/26/20 11/27/20 11/27/20 18:59 06:59 18:59 Intake Total 240 1437 Balance 240 1437 Intake: Intake, IV Titration 775 Amount Remdesivir 100 mg In 100 Sodium Chloride 0.9% 250 ml @ 250 mls/hr IVPB DAILY@1700 [facility] Rx#: [id number] Sodium Chloride 0.9% 1, 675 000 ml @ 75 mls/hr IV . [id number] [facility] Rx#:[id number] Oral 240 360 Blood Product 302 Ffp Convalescent Plasma 302 Cpd Unit [id number] Other: # Voids 2 3 # Bowel Movements 2 - Exam Gen. appearance, comfortable, slightly diaphoretic and looks fatigued. Not in acute breathing distress mild looks to be quite Lethargic and weak currently on 5 L of oxygen by nasal cannula. Head exam was generally normal. There was no scleral icterus or corneal arcus. Mucous membranes were moist. Neck was supple and without jugular venous distension, thyromegaly, or carotid bruits. Carotids were easily palpable bilaterally. There was no adenopathy. Lungs are diminished and the patient has crackles in lung bases. Breathing is unlabored. Cardiac exam revealed the PMI to be normally situated and sized. The rhythm was regular and no extrasystoles were noted during several minutes of auscultation. The first and second heart sounds were normal and physiologic splitting of the second heart sound was noted. There were no murmurs, rubs, clicks, or gallops. Abdominal exam revealed normal bowel sounds. The abdomen was soft, non-tender, and without masses, organomegaly, or appreciable enlargement of the abdominal aorta. Examination of the extremities revealed easily palpable radial, femoral and pedal pulses. There was no cyanosis, clubbing or edema. Examination of the skin revealed no evidence of significant rashes, suspicious appearing nevi or other concerning lesions. Neurologically, the patient is awake and alert and the patient does not have any focal neurological deficit. Cranial nerves are essentially intact.Generalized global motor weakness. - Labs CBC & Chem 7: 11/25/20 12:15 11/27/20 08:24 Labs: Abnormal Lab Results - Last 24 Hours (Table) 11/26/20 11/26/20 11/27/20 Range/Units 12:04 21:03 07:40 D-Dimer (<0.60) mg/L FEU Sodium (137-145) mmol/L Glucose (74-99) mg/dL POC Glucose (mg/dL) 153 H 199 H 140 H (75-99) mg/dL Calcium (8.4-10.2) mg/dL Lactate Dehydrogenase (313-618) U/L C-Reactive Protein (<1.0) mg/dL 11/27/20 11/27/20 Range/Units 08:24 08:24 D-Dimer 1.00 H (<0.60) mg/L FEU Sodium 135 L (137-145) mmol/L Glucose 124 H (74-99) mg/dL POC Glucose (mg/dL) (75-99) mg/dL Calcium 7.9 L (8.4-10.2) mg/dL Lactate Dehydrogenase 1867 H (313-618) U/L C-Reactive Protein 4.8 H (<1.0) mg/dL Microbiology - Last 24 Hours (Table) 11/25/20 12:15 Blood Culture - Preliminary Blood No Growth after 24 hours 11/25/20 12:15 Blood Culture - Preliminary Blood No Growth after 24 hours Assessment and Plan Plan: 1 acute COVID-19 related pneumonia. Symptoms started approximately 9 days ago. The patient presented with shortness of breath and constitutional symptoms addition to some limited pneumonia and lung bases bilaterally. The patient is not confused however he has significant weakness. Consider the possibility of COVID-19 encephalopathy.. Clinically, he is feeling slightly better. He is currently on 5 L of oxygen by nasal cannula. Electrolytes are also improving with fluids. She is receiving a combination of Decadron and Remdesivir a #3 and he received also units of convalescent plasma. He is still having diarrhea which I attribute to COVID-19 infection. 2 acute hypoxic respiratory failure currently on 5 L by nasal cannula. Chest x-ray was reviewed 3 diabetes mellitus maintained on metformin 4 hypertension 5 Hypochloremic hyponatremia most likely secondary to intravascular volume depletion 6 mild transaminitis secondary to COVID-19 related infection 7 hyperlipidemia 8 lymphopenia secondary to above 9 generalized muscle weakness and overall weakness secondary to COVID-19 related infection. Plan IV fluids with normal saline at the rate of 75 mL an hour Monitor sodium level Oxygen supplementation 5 L and titrate the flow to maintain saturation above 90% Decadron 6 mg IV every 24 hours Lovenox 40 mg subcu every 24 hours Check inflammatory markers including LDH and CRP were elevated. d-dimer is mildly elevated and LDH continues to be quite elevated. check CPK was normal monitor LFTs were mildly elevated and the patient has some mild transaminitis Remdesivir day #3 Received a unit of convalescent plasma We'll continue to follow. Resume home medications. Monitor oxygenation.
[2020-11-27 11:59] LABS: Glucose,Whole Blood 158 mg/dL (75-99)
[2020-11-27] MEDS: REMDESIVIR 100 MG in SODIUM CHLORIDE 0.9% 250 ML IVPB SCH (16:41)
[2020-11-27 16:54] LABS: Glucose,Whole Blood 136 mg/dL (75-99)
--- NOTE | 2020-11-27 20:34 | P.PN ---
Progress Note - Text Progress Note Date: 11/27/20 Chief Complaint: Short of breath History of presenting complaint: This is a pleasant 55-year-old patient of Dr. Stratton. Chronic stable medical conditions include diabetes, hypertension, chronic insomnia hyperlipidemia. Patient 40s of on Saturday or diagnosed with COVID 19. Symptoms started 2 days prior to that. Short of breath cough fever chills headaches bodyaches some diarrhea. No loss of smell or taste. Patient initial pulse ox on room air was 94% and then a few hours patient did drop down to 88%. Admitted with COVID 19 pneumonia, acute hypoxic respiratory failure. Started IV dexamethasone, Lovenox, IV Remdesivir. Initially started on 4 L of nasal cannula. Today: On 5 L nasal cannula. Short of breath. A slight cough. Tired. Decreased appetite. Review of systems: Was done for constitutional, cardiovascular, GI, pulmonary. relevant finding as above Active Medications Acetaminophen (Acetaminophen Tab 325 Mg Tab) 650 mg PO Q6HR PRN PRN Reason: Mild Pain or Fever > 100.5 Last Admin: 11/27/20 01:10 Dose: 650 mg Documented by: Hydrocodone Bitart/Acetaminophen (Hydrocodone/Apap 7.5-325mg 1 Each Tab) 1 each PO Q4H PRN PRN Reason: Pain Albuterol Sulfate (Albuterol Hfa Inhaler) 1 puff INHALATION RT-QID PRN PRN Reason: Shortness Of Breath Last Admin: 11/27/20 19:42 Dose: 1 puff Documented by: Ascorbic Acid (Ascorbic Acid 500 Mg Tab) 1,000 mg PO DAILY [facility] Last Admin: 11/27/20 08:31 Dose: 1,000 mg Documented by: Atorvastatin Calcium (Atorvastatin 20 Mg Tab) 20 mg PO HS [facility] Last Admin: 11/26/20 20:55 Dose: 20 mg Documented by: Cholecalciferol (Cholecalciferol 25 Mcg (1000 Iu) Tablet) 100 mcg PO DAILY [facility] Last Admin: 11/27/20 08:31 Dose: 100 mcg Documented by: Dexamethasone Sodium Phosphate (Dexamethasone Sod Phosphate 10 Mg/Ml 1 Ml Vial) 6 mg IV DAILY [facility] Last Admin: 11/27/20 08:32 Dose: 6 mg Documented by: Enoxaparin Sodium (Enoxaparin 40 Mg/0.4 Ml Syringe) 40 mg SQ DAILY [facility] Last Admin: 11/27/20 08:32 Dose: 40 mg Documented by: Famotidine (Famotidine 20 Mg Tab) 20 mg PO BID [facility] Last Admin: 11/27/20 08:31 Dose: 20 mg Documented by: Sodium Chloride (Saline 0.9%) 1,000 mls @ 75 mls/hr IV .[id number] [facility] Last Admin: 11/27/20 16:40 Dose: 75 mls/hr Documented by: Remdesivir 100 mg/ Sodium (Chloride) 250 mls @ 250 mls/hr IVPB DAILY@1700 [facility] Stop: 11/29/20 17:59 Last Admin: 11/27/20 16:41 Dose: 250 mls/hr Documented by: Sodium Chloride (Saline 0.9%) 1,000 mls @ 75 mls/hr IV .[id number] [facility] Last Admin: 11/27/20 16:41 Dose: 75 mls/hr Documented by: Ibuprofen (Ibuprofen 400 Mg Tab) 400 mg PO Q6HR PRN PRN Reason: Mild Pain or Fever > 100.5 Insulin Aspart (Insulin Aspart (Novolog) 100 Unit/Ml Vial) 0 unit SQ ACHS [facility]; Protocol Last Admin: 11/27/20 18:01 Dose: Not Given Documented by: Lisinopril (Lisinopril 20 Mg Tab) 20 mg PO DAILY [facility] Last Admin: 11/27/20 08:31 Dose: 20 mg Documented by: Metformin HCl (Metformin 500 Mg Tab) 500 mg PO DAILY [facility] Last Admin: 11/27/20 08:31 Dose: 500 mg Documented by: Naloxone HCl (Naloxone 0.4 Mg/Ml 1 Ml Vial) 0.2 mg IV Q2M PRN PRN Reason: Opioid Reversal Nortriptyline HCl (Nortriptyline 25 Mg Cap) 50 mg PO HS [facility] Last Admin: 11/26/20 20:55 Dose: 50 mg Documented by: Ondansetron HCl (Ondansetron 4 Mg/2 Ml Vial) 4 mg IVP Q8HR PRN PRN Reason: Nausea And Vomiting Last Admin: 11/26/20 19:33 Dose: 4 mg Documented by: Zinc Sulfate (Zinc Sulfate 220 Mg Cap) 220 mg PO DAILY [facility] Last Admin: 11/27/20 08:31 Dose: 220 mg Documented by: Past medical history to include: Diabetes, hypertension, insomnia, hyperlipidemia, back surgery Social history: . Does not smoke or drink alcohol. Employed Physical examination: VITAL SIGNS: 98.1, 79, 18, 103/67, 92% on 5 L GENERAL: Laying in bed, tired, awake. LUNGS:[ Respiratory rate increased, PSYCH: Alert and oriented x3; mood and affect slightly anxious. NEUROLOGICAL: Cranial nerves grossly intact; no facial asymmetry, moving all 4 limbs Rest of exam per pulmonary and nursing INVESTIGATIONS, reviewed in the clinical context: November 27: D-dimer 1 potassium 3.9 creatinine 0.74 LDH 1867 CRP 4.8 November 26: D-dimer 0.7 potassium 4.5 creatinine 0.77 CRP 7.1 LDH 1722 Admission labs: WBC 5.3 hemoglobin 15.8 lymphocytes 0.5 d-dimer 0.77 sodium 128 potassium 4 creatinine 0.76 AST 123 ALT 78 LDH 1993 CRP 7.7 EKG tracing personally reviewed by me-normal sinus rhythm Chest x-ray film personally reviewed by me-bilateral infiltrates Assessment and plan: -Bilateral COVID 19 pneumonia symptoms starting 6 days ago and patient been diagnosed with COVID 4 days ago.-Slow to respond Patient is currently receiving vitamin C vitamin D IV Decadron Pepcid subcu Lovenox. Started on IV Remdesivir. Pulmonary consulted -Acute hypoxic respiratory failure from COVID 19-slow to respond Patient had dropped down to 88% on room air, requiring 4 L nasal cannula -Diabetes mellitus type 2 Follow Accu-Cheks. Hold Glucophage. Add Levemir 6 units subcu daily at bedtime -Essential hypertension Continue with Zestril -Hyperlipidemia Continue with Lipitor -Chronic insomnia, idiopathic Continue with Pamelor -Hyponatremia likely from decreased solute intake IV fluids Care was discussed with the patient. Continue current medications.
[2020-11-27 20:58] LABS: Glucose,Whole Blood 147 mg/dL (75-99)
[2020-11-27] MEDS: INSULIN DETEMIR (LEVEMIR) 100 UNIT/ML SYR SQ SCH (21:26)
[2020-11-27] MEDS: ATORVASTATIN 20 MG TAB PO SCH (21:26)
[2020-11-27] MEDS: NORTRIPTYLINE 25 MG CAP PO SCH (21:28)
[2020-11-28] MEDS: SODIUM CHLORIDE 0.9% 1,000 ML IV SCH ×4 (05:31→23:48)
[2020-11-28 07:21] LABS: Glucose,Whole Blood 95 mg/dL (75-99)
[2020-11-28] MEDS: INSULIN ASPART (NovoLOG) 100 UNIT/ML VIAL SQ SCH ×4 (07:58→20:52)
[2020-11-28] MEDS: ALBUTEROL HFA INHALER INHALATION PRN ×3 (08:11→21:30)
[2020-11-28 08:29] LABS: C Reactive Protein 5.1 mg/dL (<1.0)
[2020-11-28] MEDS: FAMOTIDINE 20 MG TAB PO SCH ×2 (09:14→20:53)
[2020-11-28] MEDS: ASCORBIC ACID 500 MG TAB PO SCH (09:14)
[2020-11-28] MEDS: CHOLECALCIFEROL 25 MCG (1000 IU) TABLET PO SCH (09:14)
[2020-11-28] MEDS: ENOXAPARIN 40 MG/0.4 ML SYRINGE SQ SCH (09:14)
[2020-11-28] MEDS: DEXAMETHASONE SOD PHOSPHATE 10 MG/ML 1 ML VIAL IV SCH (09:14)
[2020-11-28] MEDS: lisinopriL 20 MG TAB PO SCH (09:14)
[2020-11-28] MEDS: ZINC SULFATE 220 MG CAP PO SCH (09:14)
[2020-11-28 12:10] LABS: Glucose,Whole Blood 128 mg/dL (75-99)
--- NOTE | 2020-11-28 12:38 | P.PN ---
Subjective Progress Note Date: 11/28/20 Principal diagnosis: COVID 19 pneumonitis. Progress note dated 11/28/2020. 55-year-old male, who is been the hospital now for 3 days. He is currently on 5 L nasal cannula, and saline at 75 mL an hour. The patient feels like he is improving. He is on REM, day 4. He also received convalescent plasma. I did tell him to make sure that he moved about while he was laying in bed. Right side down, left side down, supine, and prone. Labs today include a LDH of 1708, and a C-reactive protein of 5.1. His last chest x-ray was on November 26, and has been reviewed. Objective - Vital Signs Vital signs: Vital Signs Temp 98.4 F 11/28/20 08:30 Pulse 80 11/28/20 08:30 Resp 18 11/28/20 08:30 BP 99/61 11/28/20 08:30 Pulse Ox 91 L 11/28/20 08:30 Intake & Output 11/27/20 11/28/20 11/28/20 18:59 06:59 18:59 Intake Total 160 600 Balance 160 600 Intake: Intake, IV Titration 600 Amount Sodium Chloride 0.9% 1, 600 000 ml @ 75 mls/hr IV . [id number] [facility] Rx#:[id number] Oral 160 Other: Voiding Method Toilet # Voids 2 2 # Bowel Movements 1 - Exam No acute distress, oriented 3. Currently on 5 L nasal cannula. HEENT examination is grossly unremarkable. Neck supple. Full range of motion. No adenopathy thyromegaly or neck vein distention. Cardiovascular examination reveals regular rhythm rate. S1-S2 normal. No S3 or S4. No discernible murmur noted. Heart sounds are distant. Heart rate 80 bpm. Lungs reveal scattered bilateral rhonchi, and some basilar crackles. Breath sounds equal bilaterally. There are no wheezes. The patient does cough on deep inspiration. Abdomen soft bowel sounds are heard. No masses or tenderness. Extremities are intact. No cyanosis clubbing or edema. Skin is without rash or lesion. Neurologic examination is brief but nonfocal. - Labs CBC & Chem 7: 11/25/20 12:15 11/27/20 08:24 Labs: Abnormal Lab Results - Last 24 Hours (Table) 11/27/20 11/27/20 11/28/20 Range/Units 16:52 20:56 07:44 POC Glucose (mg/dL) 136 H 147 H (75-99) mg/dL Lactate Dehydrogenase 1708 H (313-618) U/L C-Reactive Protein 5.1 H (<1.0) mg/dL 11/28/20 Range/Units 12:08 POC Glucose (mg/dL) 128 H (75-99) mg/dL Lactate Dehydrogenase (313-618) U/L C-Reactive Protein (<1.0) mg/dL Microbiology - Last 24 Hours (Table) 11/25/20 12:15 Blood Culture - Preliminary Blood No Growth after 48 hours 11/25/20 12:15 Blood Culture - Preliminary Blood No Growth after 48 hours Assessment and Plan Assessment: Acute hypoxemic respiratory failure secondary to COVID 19 pneumonia/pneumonitis. Diabetes mellitus. Benign essential hypertension. Hyponatremia, secondary to volume depletion. Hyperlipidemia. Lymphopenia, secondary to COVID 19 infection. Generalized muscle weakness and general medical debility secondary to COVID 19 infection Plan: Plan dated 11/28/2020. The patient remains on 5 L nasal cannula, and saline at 75 mL an hour. The patient also remains on Decadron and Lovenox at appropriate doses. The patient is on REM, day #4. The patient also received a unit, convalescent plasma. Overall, the patient appears to be improving, and feels better. The patient could possibly discharge in next 24-48 hours depending on oxygen requirements, etc. We will continue to follow make recommendations were appropriate. Prognosis is guarded. Time with Patient: Less than 30
[2020-11-28] MEDS: REMDESIVIR 100 MG in SODIUM CHLORIDE 0.9% 250 ML IVPB SCH (16:51)
[2020-11-28 17:08] LABS: Glucose,Whole Blood 169 mg/dL (75-99)
[2020-11-28 20:22] LABS: Glucose,Whole Blood 188 mg/dL (75-99)
[2020-11-28] MEDS: INSULIN DETEMIR (LEVEMIR) 100 UNIT/ML SYR SQ SCH (20:52)
[2020-11-28] MEDS: NORTRIPTYLINE 25 MG CAP PO SCH (20:52)
[2020-11-28] MEDS: ATORVASTATIN 20 MG TAB PO SCH (20:53)
--- NOTE | 2020-11-28 21:14 | P.PN ---
Progress Note - Text Progress Note Date: 11/28/20 Chief Complaint: Short of breath History of presenting complaint: This is a pleasant 55-year-old patient of Dr. Stratton. Chronic stable medical conditions include diabetes, hypertension, chronic insomnia hyperlipidemia. Patient 40s of on Saturday or diagnosed with COVID 19. Symptoms started 2 days prior to that. Short of breath cough fever chills headaches bodyaches some diarrhea. No loss of smell or taste. Patient initial pulse ox on room air was 94% and then a few hours patient did drop down to 88%. Admitted with COVID 19 pneumonia, acute hypoxic respiratory failure. Started IV dexamethasone, Lovenox, IV Remdesivir. Initially started on 4 L of nasal cannula. Today: Short of breath. On 5 L nasal cannula. Tired. Oral intake about 50% Review of systems: Was done for constitutional, cardiovascular, GI, pulmonary. relevant finding as above Active Medications Acetaminophen (Acetaminophen Tab 325 Mg Tab) 650 mg PO Q6HR PRN PRN Reason: Mild Pain or Fever > 100.5 Last Admin: 11/27/20 01:10 Dose: 650 mg Documented by: Hydrocodone Bitart/Acetaminophen (Hydrocodone/Apap 7.5-325mg 1 Each Tab) 1 each PO Q4H PRN PRN Reason: Pain Albuterol Sulfate (Albuterol Hfa Inhaler) 1 puff INHALATION RT-QID PRN PRN Reason: Shortness Of Breath Last Admin: 11/28/20 13:23 Dose: 1 puff Documented by: Ascorbic Acid (Ascorbic Acid 500 Mg Tab) 1,000 mg PO DAILY [facility] Last Admin: 11/28/20 09:14 Dose: 1,000 mg Documented by: Atorvastatin Calcium (Atorvastatin 20 Mg Tab) 20 mg PO HS [facility] Last Admin: 11/28/20 20:53 Dose: 20 mg Documented by: Cholecalciferol (Cholecalciferol 25 Mcg (1000 Iu) Tablet) 100 mcg PO DAILY [facility] Last Admin: 11/28/20 09:14 Dose: 100 mcg Documented by: Dexamethasone Sodium Phosphate (Dexamethasone Sod Phosphate 10 Mg/Ml 1 Ml Vial) 6 mg IV DAILY [facility] Last Admin: 11/28/20 09:14 Dose: 6 mg Documented by: Enoxaparin Sodium (Enoxaparin 40 Mg/0.4 Ml Syringe) 40 mg SQ DAILY [facility] Last Admin: 11/28/20 09:14 Dose: 40 mg Documented by: Famotidine (Famotidine 20 Mg Tab) 20 mg PO BID [facility] Last Admin: 11/28/20 20:53 Dose: 20 mg Documented by: Sodium Chloride (Saline 0.9%) 1,000 mls @ 75 mls/hr IV .[id number] [facility] Last Admin: 11/28/20 12:20 Dose: Not Given Documented by: Remdesivir 100 mg/ Sodium (Chloride) 250 mls @ 250 mls/hr IVPB DAILY@1700 [facility] Stop: 11/29/20 17:59 Last Admin: 11/28/20 16:51 Dose: 250 mls/hr Documented by: Sodium Chloride (Saline 0.9%) 1,000 mls @ 75 mls/hr IV .[id number] [facility] Last Admin: 11/28/20 15:25 Dose: 75 mls/hr Documented by: Ibuprofen (Ibuprofen 400 Mg Tab) 400 mg PO Q6HR PRN PRN Reason: Mild Pain or Fever > 100.5 Insulin Aspart (Insulin Aspart (Novolog) 100 Unit/Ml Vial) 0 unit SQ [facility]; Protocol Last Admin: 11/28/20 20:52 Dose: 5 unit Documented by: Insulin Detemir (Insulin Detemir (Levemir) 100 Unit/Ml Syr) 6 unit SQ [facility] Last Admin: 11/28/20 20:52 Dose: 6 unit Documented by: Lisinopril (Lisinopril 20 Mg Tab) 20 mg PO DAILY [facility] Last Admin: 11/28/20 09:14 Dose: 20 mg Documented by: Naloxone HCl (Naloxone 0.4 Mg/Ml 1 Ml Vial) 0.2 mg IV Q2M PRN PRN Reason: Opioid Reversal Nortriptyline HCl (Nortriptyline 25 Mg Cap) 50 mg PO [facility] Last Admin: 11/28/20 20:52 Dose: 50 mg Documented by: Ondansetron HCl (Ondansetron 4 Mg/2 Ml Vial) 4 mg IVP Q8HR PRN PRN Reason: Nausea And Vomiting Last Admin: 11/26/20 19:33 Dose: 4 mg Documented by: Zinc Sulfate (Zinc Sulfate 220 Mg Cap) 220 mg PO DAILY [facility] Last Admin: 11/28/20 09:14 Dose: 220 mg Documented by: Past medical history to include: Diabetes, hypertension, insomnia, hyperlipidemia, back surgery Social history: . Does not smoke or drink alcohol. Employed Physical examination: VITAL SIGNS: 98.1, 78, 22, 1 25 x 39, 95% on 5 L GENERAL: Laying in bed, tired, awake. LUNGS:[ Respiratory rate increased, PSYCH: Alert and oriented x3; mood and affect slightly anxious. NEUROLOGICAL: Cranial nerves grossly intact; no facial asymmetry, moving all 4 limbs Rest of exam per pulmonary and nursing INVESTIGATIONS, reviewed in the clinical context: November 28: LDH 08/18/2007 CRP 5.1 November 27: D-dimer 1 potassium 3.9 creatinine 0.74 LDH 1867 CRP 4.8 November 26: D-dimer 0.7 potassium 4.5 creatinine 0.77 CRP 7.1 LDH 1722 Admission labs: WBC 5.3 hemoglobin 15.8 lymphocytes 0.5 d-dimer 0.77 sodium 128 potassium 4 creatinine 0.76 AST 123 ALT 78 LDH 1993 CRP 7.7 EKG tracing personally reviewed by me-normal sinus rhythm Chest x-ray film personally reviewed by me-bilateral infiltrates Assessment and plan: -Bilateral COVID 19 pneumonia symptoms starting 6 days ago and patient been diagnosed with COVID 4 days ago.-Slow to respond receiving vitamin C vitamin D IV Decadron Pepcid subcu Lovenox. Started on IV Remdesivir. Pulmonary consulted -Acute hypoxic respiratory failure from COVID 19-slow to respond , requiring 5 L nasal cannula -Diabetes mellitus type 2 Follow Accu-Cheks. Hold Glucophage. Increase Levemir 8 units subcu daily at bedtime -Essential hypertension Continue with Zestril -Hyperlipidemia Continue with Lipitor -Chronic insomnia, idiopathic Continue with Pamelor -Hyponatremia likely from decreased solute intake IV fluids Care was discussed with the patient. Continue current medications.
[2020-11-29 07:25] LABS: African American GFR (CKD) >90 (>60 ml/min/1.73 sqM); Anion Gap 2 mmol/L; Blood Urea Nitrogen 15 mg/dL (9-20); Calcium 7.6 mg/dL (8.4-10.2); Carbon Dioxide 27 mmol/L (22-30); Chloride 108 mmol/L (98-107); Glucose 81 mg/dL (74-99); LDH 1397 U/L (313-618); Non-African American GFR(CKD) >90 (>60 ml/min/1.73 sqM); Potassium 4.1 mmol/L (3.5-5.1); Sodium 137 mmol/L (137-145)
[2020-11-29 07:33] LABS: Glucose,Whole Blood 92 mg/dL (75-99)
[2020-11-29] MEDS: INSULIN ASPART (NovoLOG) 100 UNIT/ML VIAL SQ SCH ×4 (08:10→21:20)
[2020-11-29] MEDS: ZINC SULFATE 220 MG CAP PO SCH (08:17)
[2020-11-29] MEDS: DEXAMETHASONE SOD PHOSPHATE 10 MG/ML 1 ML VIAL IV SCH (08:17)
[2020-11-29] MEDS: ASCORBIC ACID 500 MG TAB PO SCH (08:17)
[2020-11-29] MEDS: lisinopriL 20 MG TAB PO SCH (08:18)
[2020-11-29] MEDS: CHOLECALCIFEROL 25 MCG (1000 IU) TABLET PO SCH (08:18)
[2020-11-29] MEDS: ENOXAPARIN 40 MG/0.4 ML SYRINGE SQ SCH (08:18)
[2020-11-29] MEDS: FAMOTIDINE 20 MG TAB PO SCH ×2 (08:18→21:24)
[2020-11-29] MEDS: SODIUM CHLORIDE 0.9% 1,000 ML IV SCH ×3 (08:19→21:23)
[2020-11-29 08:31] LABS: C Reactive Protein 3.8 mg/dL (<1.0)
[2020-11-29] MEDS: ALBUTEROL HFA INHALER INHALATION PRN ×2 (09:30→12:32)
[2020-11-29 12:08] LABS: Glucose,Whole Blood 94 mg/dL (75-99)
--- NOTE | 2020-11-29 14:16 | P.PN ---
Subjective Progress Note Date: 11/29/20 Principal diagnosis: COVID 19 pneumonitis. Progress note dated 11/28/2020. 55-year-old male, who is been the hospital now for 3 days. He is currently on 5 L nasal cannula, and saline at 75 mL an hour. The patient feels like he is improving. He is on REM, day 4. He also received convalescent plasma. I did tell him to make sure that he moved about while he was laying in bed. Right side down, left side down, supine, and prone. Labs today include a LDH of 1708, and a C-reactive protein of 5.1. His last chest x-ray was on November 26, and has been reviewed. Progress note dated 11/29/2020. 55-year-old male, who is now been in the hospital for about 4 days. He's curren tly on 4 L nasal cannula. He is receiving saline at 75 mL an hour. He is on day 5 of REM. He also received convalescent plasma. Currently, the patient is resting comfortably. He feels like he is improved. Lab data today includes a d-dimer 1.66, sodium 137, potassium 4.1, chlorides 108, CO2 27, anion gap 2, BUN 15, creatinine 0.65, LDH 1397, and C-reactive protein 3.8. Objective - Vital Signs Vital signs: Vital Signs Temp 97.8 F 11/29/20 08:00 Pulse 82 11/29/20 10:32 Resp 18 11/29/20 08:00 BP 146/83 11/29/20 08:00 Pulse Ox 85 L 11/29/20 10:32 Intake & Output 11/28/20 11/29/20 11/29/20 18:59 06:59 18:59 Intake Total 900 500 Output Total 350 600 Balance -350 300 500 Intake: Intake, IV Titration 900 Amount Sodium Chloride 0.9% 1, 900 000 ml @ 75 mls/hr IV . [id number] [facility] Rx#:[id number] Oral 500 Output: Urine 350 600 Other: Voiding Method Toilet Toilet # Voids 1 3 - Exam No acute distress, oriented 3. Currently on 4 L nasal cannula. Saturations between 85-91%. HEENT examination is grossly unremarkable. Neck supple. Full range of motion. No adenopathy thyromegaly or neck vein distention. Cardiovascular examination reveals regular rhythm rate. S1-S2 normal. No S3 or S4. No discernible murmur noted. Heart sounds are distant. Heart rate 82 bpm. Lungs reveal scattered bilateral rhonchi, and some basilar crackles. Breath sounds equal bilaterally. There are no wheezes. The patient does cough on deep inspiration. Breath sounds are unchanged. Abdomen soft bowel sounds are heard. No masses or tenderness. Extremities are intact. No cyanosis clubbing or edema. Skin is without rash or lesion. Neurologic examination is brief but nonfocal. - Labs CBC & Chem 7: 11/25/20 12:15 11/29/20 06:43 Labs: Abnormal Lab Results - Last 24 Hours (Table) 11/28/20 11/28/20 11/29/20 Range/Units 17:06 20:20 06:43 D-Dimer 1.66 H (<0.60) mg/L FEU Chloride (98-107) mmol/L Creatinine (0.66-1.25) mg/dL POC Glucose (mg/dL) 169 H 188 H (75-99) mg/dL Calcium (8.4-10.2) mg/dL Lactate Dehydrogenase (313-618) U/L C-Reactive Protein (<1.0) mg/dL 11/29/20 Range/Units 06:43 D-Dimer (<0.60) mg/L FEU Chloride 108 H (98-107) mmol/L Creatinine 0.65 L (0.66-1.25) mg/dL POC Glucose (mg/dL) (75-99) mg/dL Calcium 7.6 L (8.4-10.2) mg/dL Lactate Dehydrogenase 1397 H (313-618) U/L C-Reactive Protein 3.8 H (<1.0) mg/dL Microbiology - Last 24 Hours (Table) 11/25/20 12:15 Blood Culture - Preliminary Blood No Growth after 72 hours 11/25/20 12:15 Blood Culture - Preliminary Blood No Growth after 72 hours Assessment and Plan Assessment: Acute hypoxemic respiratory failure secondary to COVID 19 pneumonia/pneumonitis. Diabetes mellitus. Benign essential hypertension. Hyponatremia, secondary to volume depletion, resolved. Hyperlipidemia. Lymphopenia, secondary to COVID 19 infection. Generalized muscle weakness and general medical debility secondary to COVID 19 infection Plan: Plan dated 11/28/2020. The patient remains on 5 L nasal cannula, and saline at 75 mL an hour. The patient also remains on Decadron and Lovenox at appropriate doses. The patient is on REM, day #4. The patient also received a unit, convalescent plasma. Overall, the patient appears to be improving, and feels better. The patient could possibly discharge in next 24-48 hours depending on oxygen requirements, etc. We will continue to follow make recommendations were appropriate. Prognosis is guarded. Plan dated 11/29/2020. The patient has been weaned on the 4 L nasal cannula. He is on day 5 of REM. His saturations are anywhere from 85-91%. The patient could probably be considered for discharge in the next 24-48 hours. No additional recommendations are made. Sodium is improved. The patient's on appropriate medications. He does feel better. We'll continue to follow the patient and make recommendations were appropriate. Time with Patient: Less than 30
--- NOTE | 2020-11-29 16:24 | P.PN ---
Subjective From records: This is a pleasant 55-year-old patient of Dr. Stratton. Chronic stable medical conditions include diabetes, hypertension, chronic insomnia hyperlipidemia. Patient 40s of on Saturday or diagnosed with COVID 19. Symptoms started 2 days prior to that. Short of breath cough fever chills headaches bodyaches some diarrhea. No loss of smell or taste. Patient initial pulse ox on room air was 94% and then a few hours patient did drop down to 88%. Admitted with COVID 19 pneumonia, acute hypoxic respiratory failure. Started IV dexamethasone, Lovenox, IV Remdesivir. Initially started on 4 L of nasal cannula. Today: Short of breath. On 5 L nasal cannula. Tired. Oral intake about 50% Subjective: 11/29/2020 This is a pleasant 55 years old male who presents with Covid pneumonia and hypoxia. Patient today showing improvement, he was asking when he will be discharged and if it's possible today however he still needs Port-A-Cath oxygen via nasal cannula with oxygen saturation dropped to 85% on exertion. However at this is saturating more than 90%. No abdominal pain or diarrhea. No chest pain. He is hemodynamically stable D-dimer slightly up to 1.6 however inflammatory markers are trending down with LDH 1397 and C-reactive protein 3.8. Liver enzymes are trending down as well. Patient finished his last dose of REMDESIVIR today. He remains on dexamethasone, vitamin C, D and zinc. His a normal sinus 75 mL/h and insulin 8 units at bedtime Possible discharge in 24-48 hours he keeps improving Objective - Vital Signs Vital signs: Vital Signs Temp 97.5 F L 11/29/20 14:00 Pulse 68 11/29/20 14:00 Resp 18 11/29/20 14:00 BP 167/83 11/29/20 14:00 Pulse Ox 97 11/29/20 14:00 Intake & Output 11/28/20 11/29/20 11/29/20 18:59 06:59 18:59 Intake Total 900 500 Output Total 350 600 Balance -350 300 500 Intake: Intake, IV Titration 900 Amount Sodium Chloride 0.9% 1, 900 000 ml @ 75 mls/hr IV . [id number] [facility] Rx#:[id number] Oral 500 Output: Urine 350 600 Other: Voiding Method Toilet Toilet # Voids 1 3 - Exam GENERAL: The patient is alert and oriented x3, not in any acute distress. Well developed, well nourished. HEENT: Pupils are round and equally reacting to light. EOMI. No scleral icterus. No conjunctival pallor. Normocephalic, atraumatic. No pharyngeal erythema. No thyromegaly. CARDIOVASCULAR: S1 and S2 present. No murmurs, rubs, or gallops. PULMONARY: Chest is clear to auscultation, no wheezing or crackles. ABDOMEN: Soft, nontender, nondistended, normoactive bowel sounds. No palpable organomegaly. MUSCULOSKELETAL: No joint swelling or deformity. EXTREMITIES: No cyanosis, clubbing, or pedal edema. NEUROLOGICAL: Gross neurological examination did not reveal any focal deficits. SKIN: No rashes. no petechiae. - Labs CBC & Chem 7: 11/25/20 12:15 11/29/20 06:43 Labs: Abnormal Lab Results - Last 24 Hours (Table) 11/28/20 11/28/20 11/29/20 Range/Units 17:06 20:20 06:43 D-Dimer 1.66 H (<0.60) mg/L FEU Chloride (98-107) mmol/L Creatinine (0.66-1.25) mg/dL POC Glucose (mg/dL) 169 H 188 H (75-99) mg/dL Calcium (8.4-10.2) mg/dL Lactate Dehydrogenase (313-618) U/L C-Reactive Protein (<1.0) mg/dL 11/29/20 Range/Units 06:43 D-Dimer (<0.60) mg/L FEU Chloride 108 H (98-107) mmol/L Creatinine 0.65 L (0.66-1.25) mg/dL POC Glucose (mg/dL) (75-99) mg/dL Calcium 7.6 L (8.4-10.2) mg/dL Lactate Dehydrogenase 1397 H (313-618) U/L C-Reactive Protein 3.8 H (<1.0) mg/dL Microbiology - Last 24 Hours (Table) 11/25/20 12:15 Blood Culture - Preliminary Blood No Growth after 96 hours 11/25/20 12:15 Blood Culture - Preliminary Blood No Growth after 96 hours Assessment and Plan Assessment: Bilateral covid Pneumonia Acute hypoxic respiratory failure Increased inflammatory marker type II Diabetes mellitus Hypertension Plan: This is a pleasant 55 years old male who presents with Covid pneumonia. Continue with steroids, multiple vitamins and gentle hydration and insulin. Pulmonary team on the case Labs and medication were reviewed.. Continue same treatment. Continue with symptomatic treatment. Resume home medication. Monitor lytes and vitals. DVT and GI prophylaxis. Further recommendationsas per clinical course of the patient DVT prophylaxis: Subcutaneous Lovenox GI Prophylaxis: Pepcid Physical therapist: Recommend supportive
[2020-11-29] MEDS: REMDESIVIR 100 MG in SODIUM CHLORIDE 0.9% 250 ML IVPB SCH (17:10)
[2020-11-29 17:29] LABS: Glucose,Whole Blood 179 mg/dL (75-99)
[2020-11-29] MEDS ORDERED: INSULIN DETEMIR (LEVEMIR) 100 UNIT/ML SYR SQ SCH (21:00)
[2020-11-29 21:10] LABS: Glucose,Whole Blood 110 mg/dL (75-99)
[2020-11-29] MEDS: NORTRIPTYLINE 25 MG CAP PO SCH (21:22)
[2020-11-29] MEDS: ATORVASTATIN 20 MG TAB PO SCH ×2 (21:22→21:26)
[2020-11-30] MEDS: SODIUM CHLORIDE 0.9% 1,000 ML IV SCH (04:55)
[2020-11-30 07:30] LABS: Glucose,Whole Blood 66 mg/dL (75-99)
[2020-11-30] MEDS: ALBUTEROL HFA INHALER INHALATION PRN (07:36)
[2020-11-30 07:55] LABS: Glucose,Whole Blood 77 mg/dL (75-99)
[2020-11-30 08:04] VITALS: TEMP 98.3
[2020-11-30] MEDS: INSULIN ASPART (NovoLOG) 100 UNIT/ML VIAL SQ SCH ×2 (08:42→12:00)
[2020-11-30] MEDS: DEXAMETHASONE SOD PHOSPHATE 10 MG/ML 1 ML VIAL IV SCH (08:52)
[2020-11-30] MEDS: lisinopriL 20 MG TAB PO SCH (08:52)
[2020-11-30] MEDS: CHOLECALCIFEROL 25 MCG (1000 IU) TABLET PO SCH (08:52)
[2020-11-30] MEDS: ASCORBIC ACID 500 MG TAB PO SCH (08:52)
[2020-11-30] MEDS: FAMOTIDINE 20 MG TAB PO SCH (08:52)
[2020-11-30] MEDS: ZINC SULFATE 220 MG CAP PO SCH (08:52)
[2020-11-30] MEDS: ENOXAPARIN 40 MG/0.4 ML SYRINGE SQ SCH (10:00)
[2020-11-30 11:42] LABS: Glucose,Whole Blood 105 mg/dL (75-99)
--- NOTE | 2020-11-30 13:50 | P.PN ---
Subjective Progress Note Date: 11/30/20 Principal diagnosis: COVID 19 pneumonitis. Progress note dated 11/28/2020. 55-year-old male, who is been the hospital now for 3 days. He is currently on 5 L nasal cannula, and saline at 75 mL an hour. The patient feels like he is improving. He is on REM, day 4. He also received convalescent plasma. I did tell him to make sure that he moved about while he was laying in bed. Right side down, left side down, supine, and prone. Labs today include a LDH of 1708, and a C-reactive protein of 5.1. His last chest x-ray was on November 26, and has been reviewed. Progress note dated 11/29/2020. 55-year-old male, who is now been in the hospital for about 4 days. He's curren tly on 4 L nasal cannula. He is receiving saline at 75 mL an hour. He is on day 5 of REM. He also received convalescent plasma. Currently, the patient is resting comfortably. He feels like he is improved. Lab data today includes a d-dimer 1.66, sodium 137, potassium 4.1, chlorides 108, CO2 27, anion gap 2, BUN 15, creatinine 0.65, LDH 1397, and C-reactive protein 3.8. Progress note dated 11/30/2020. 55-year-old male, who is been hospitalized now for about 5 days. Currently, he's on 4 L nasal cannula. He is getting saline at 75 mL an hour. The patient did complete his REM. He also received convalescent plasma. From the pulmonary standpoint, patient appears to be doing much better. There was no new lab work today. No recent chest x-ray to report. Objective - Vital Signs Vital signs: Vital Signs Temp 98.3 F 11/30/20 08:00 Pulse 94 11/30/20 10:04 Resp 24 11/30/20 08:00 BP 148/85 11/30/20 08:00 Pulse Ox 95 11/30/20 10:04 Intake & Output 11/29/20 11/30/20 11/30/20 18:59 06:59 18:59 Intake Total 800 600 100 Output Total 300 300 Balance 800 300 -200 Intake: Oral 800 600 100 Output: Urine 300 300 Other: Voiding Method Toilet Toilet Urinal # Voids 3 2 - Exam No acute distress, oriented 3. Currently on 4 L nasal cannula. Saturations between 95%. No conversational dyspnea or use of accessory muscles. HEENT examination is grossly unremarkable. Neck supple. Full range of motion. No adenopathy thyromegaly or neck vein distention. Cardiovascular examination reveals regular rhythm rate. S1-S2 normal. No S3 or S4. No discernible murmur noted. Heart sounds are distant. Heart rate 94 bpm. Lungs reveal scattered bilateral rhonchi, and some basilar crackles. Breath s ounds equal bilaterally. There are no wheezes. The patient does cough on deep inspiration. Breath sounds are unchanged. Abdomen soft bowel sounds are heard. No masses or tenderness. Extremities are intact. No cyanosis clubbing or edema. Skin is without rash or lesion. Neurologic examination is brief but nonfocal. - Labs CBC & Chem 7: 11/25/20 12:15 11/29/20 06:43 Labs: Abnormal Lab Results - Last 24 Hours (Table) 11/29/20 11/29/20 11/30/20 Range/Units 17:26 21:08 07:29 POC Glucose (mg/dL) 179 H 110 H 66 L (75-99) mg/dL 11/30/20 Range/Units 11:40 POC Glucose (mg/dL) 105 H (75-99) mg/dL Microbiology - Last 24 Hours (Table) 11/25/20 12:15 Blood Culture - Preliminary Blood No Growth after 96 hours 11/25/20 12:15 Blood Culture - Preliminary Blood No Growth after 96 hours Assessment and Plan Assessment: Acute hypoxemic respiratory failure secondary to COVID 19 pneumonia/pneumonitis. Diabetes mellitus. Benign essential hypertension. Hyponatremia, secondary to volume depletion, resolved. Hyperlipidemia. Lymphopenia, secondary to COVID 19 infection. Generalized muscle weakness and general medical debility secondary to COVID 19 infection Plan: Plan dated 11/28/2020. The patient remains on 5 L nasal cannula, and saline at 75 mL an hour. The pat ient also remains on Decadron and Lovenox at appropriate doses. The patient is on REM, day #4. The patient also received a unit, convalescent plasma. Overall, the patient appears to be improving, and feels better. The patient could possibly discharge in next 24-48 hours depending on oxygen requirements, etc. We will continue to follow make recommendations were appropriate. Prognosis is guarded. Plan dated 11/29/2020. The patient has been weaned on the 4 L nasal cannula. He is on day 5 of REM. His saturations are anywhere from 85-91%. The patient could probably be considered for discharge in the next 24-48 hours. No additional recommendations are made. Sodium is improved. The patient's on appropriate medications. He does feel better. We'll continue to follow the patient and make recommendations were appropriate. Plan dated 11/30/2020. The patient's oxygen requirements have been weaned down to 4 L. His saturations on 4 L in the low to mid 90s. The patient remains on saline at 75 mL an hour. That could be discontinued. The patient could be considered for discharge over the next 24-48 hours. We'll leave that up to the primary. The patient should complete 10 days of Decadron 6 mg. The patient should also maintain himself on vitamin C, vitamin D3, and zinc. Additional recommendations are made. The patient should follow up with us in the office in a couple weeks or so. Time with Patient: Less than 30
[2020-11-30 14:28] VITALS: BP 117/77; PULSE 82; RESP 20
--- NOTE | 2020-11-30 22:48 | P.DS ---
Providers Date of admission: 11/25/20 15:08 Attending physician: Khanh Smith Consults: 11/25/20 15:47 Consult Physician Urgent Consulting Provider: Red Sanchez Consult Reason/Comments: Covid pneumonia, hypoxia Do you want consulting provider notified?: Yes Primary care physician: Dominguez Stratton [place] Hospital Course: Diagnoses: Bilateral covid Pneumonia Acute hypoxic respiratory failure Increased inflammatory marker type II Diabetes mellitus Hypertension Hospital course: This is a pleasant 55 years old male who presents with Covid pneumonia and hypoxia. He was treated with dexamethasone, vitamin C, vitamin D, zinc, he received 5 day course of remdesivir finished on 11/29/20. Patient is been followed closely by pulmonary team. With treatment patient showed interval improvement in his symptoms. Dyspnea improved significantly and is back to baseline, no coughing. No chest pain, he is eating well. No change in urine or bowel habits. No fever. Patient was eager to go home from yesterday Patient was cleared for discharge by Dr. Panda cop Patient will be discharged on home oxygen, oxygen time is already delivered at bedside and patient is aware. Problems and management plan were discussed with the patient and he verbalized understanding and acceptance Patient was found stable and can be discharged home however he needs follow-up as an outpatient. Patient was instructed to follow up with PCP Dr. Stratton within one week and patient agree. Also patient was instructed to follow up with cop Dr. John and 3-4 weeks and he agrees to call and make his own appointment Physical exam Gen: patient is a AAOx3, no distress CVS: S1-S2, RRR, no murmur Lungs: B/L CTA, no wheezing Abdomen: soft, no distention, no tenderness, positive bowel sounds Extremity: no leg edema or induration Time spent more than [address] Rey Patient Condition at Discharge: Stable Plan - Discharge Summary New Discharge Prescriptions: New Famotidine [Pepcid] 20 mg PO BID #40 tab Dexamethasone [Decadron] 6 mg PO DAILY 4 Days #4 tablet Zinc Sulfate [Orazinc] 220 mg PO DAILY #30 cap Acetaminophen Tab [Tylenol] 650 mg PO Q6HR PRN tab PRN Reason: Mild Pain Or Fever > 100.5 Ascorbic Acid [Vitamin C] 1,000 mg PO DAILY #30 tab Cholecalciferol [Vitamin D3 (25 Mcg = 1000 Iu)] 100 mcg PO DAILY #30 tablet Continue lisinopriL [Zestril] 20 mg PO DAILY Nortriptyline [Pamelor] 50 mg PO HS Benzonatate [Tessalon Perles] 100 mg PO TID PRN PRN Reason: Cough Atorvastatin [Lipitor] 20 mg PO HS metFORMIN HCL [Glucophage] 500 mg PO DAILY HYDROcodone/APAP 7.5-325MG [[place] 7.5-325] 1 tab PO Q4H PRN PRN Reason: Pain Albuterol Inhaler [Ventolin Hfa Inhaler] 1 puff INHALATION RT-QID PRN PRN Reason: Shortness Of Breath Discharge Medication List Albuterol Inhaler [Ventolin Hfa Inhaler] 1 puff INHALATION RT-QID PRN 11/25/20 [History] Atorvastatin [Lipitor] 20 mg PO HS 11/25/20 [History] Benzonatate [Tessalon Perles] 100 mg PO TID PRN 11/25/20 [History] HYDROcodone/APAP 7.5-325MG [[place] 7.5-325] 1 tab PO Q4H PRN 11/25/20 [History] Nortriptyline [Pamelor] 50 mg PO HS 11/25/20 [History] lisinopriL [Zestril] 20 mg PO DAILY 11/25/20 [History] metFORMIN HCL [Glucophage] 500 mg PO DAILY 11/25/20 [History] Acetaminophen Tab [Tylenol] 650 mg PO Q6HR PRN tab 11/30/20 [Rx] Ascorbic Acid [Vitamin C] 1,000 mg PO DAILY #30 tab 11/30/20 [Rx] Cholecalciferol [Vitamin D3 (25 Mcg = 1000 Iu)] 100 mcg PO DAILY #30 tablet 11/30/20 [Rx] Dexamethasone [Decadron] 6 mg PO DAILY 4 Days #4 tablet 11/30/20 [Rx] Famotidine [Pepcid] 20 mg PO BID #40 tab 11/30/20 [Rx] Zinc Sulfate [Orazinc] 220 mg PO DAILY #30 cap 11/30/20 [Rx] Follow up Appointment(s)/Referral(s): [facility] [NON-STAFF] - As Needed (Supplier of home oxygen) Dominguez Stratton MD [Primary Care Provider] - 12/08/20 8:30 am Red Sanchez MD [STAFF PHYSICIAN] - 12/29/20 3:00 pm (Shoshana Brown) Patient Instructions/Handouts: Coronavirus Disease 2019 (COVID-19), Using Oxygen at Home (DC), Pneumonia (DC) Activity/Diet/Wound Care/Special Instructions: Low carbohydrate diet Activity is restricted till you see your doctor Discharge Disposition: HOME SELF-CARE
== END 2020-11-30 15:05 | disposition home or self-care (01) | DRG 177 ==
LOC: EC 10:23 → 4SSUR 15:08 → 1SOBS 11-26 16:00 → 6NMEDSUR 11-28 16:02
PROVIDERS: ADMIT Hospitalist; ATTEND Hospitalist
PROC: XW033E5 Introduction of Remdesivir Anti-infective into Peripheral Vein, Percutaneous Approach, New Technology Group 5 (ICD-10-PCS; principal; 2020-11-25)
PROC: XW13325 Transfusion of Convalescent Plasma (Nonautologous) into Peripheral Vein, Percutaneous Approach, New Technology Group 5 (ICD-10-PCS; 2020-11-27)
DX: U07.1 COVID-19 (principal); J12.82 Pneumonia due to coronavirus disease 2019; J96.01 Acute respiratory failure with hypoxia; E87.1 Hypo-osmolality and hyponatremia; E78.5 Hyperlipidemia, unspecified; F51.04 Psychophysiologic insomnia; D72.810 Lymphocytopenia; R74.01 Elevation of levels of liver transaminase levels; E11.9 Type 2 diabetes mellitus without complications; E87.8 Other disorders of electrolyte and fluid balance, not elsewhere classified; E86.9 Volume depletion, unspecified; R53.81 Other malaise; I10 Essential (primary) hypertension; Z79.84 Long term (current) use of oral hypoglycemic drugs; Z79.899 Other long term (current) drug therapy
CPT/HCPCS: 36415; 71045; 80048; 80053; 82550; 82728; 83605; 83615; 83735; 85025; 85379; 85610; 85730; 86140; 86850; 86900; 86901; 87040; 93005; 94640; 94760; 96361; 96374; 99285